=== PATIENT | female | born 1990 | race Two or more races ===

== ENCOUNTER 2017-11-20 09:50 | Emergency (ER) | payer SELFPAY ==
[~2017-11-20] VITALS: Ht 160 cm; Wt 54.4 kg
[2017-11-20 10:27] VITALS: BP 116/67
[2017-11-20 10:37] LABS: BILIRUBIN,URINE NEGATIVE (NEG); CLARITY,URINE CLEAR; COLOR,URINE YELLOW; NITRITE,URINE NEGATIVE (NEG); PH,URINE 8.5; PROTEIN,URINE NEGATIVE (NEG-TRACE); UROBILINOGEN,URINE 0.2 mg/dL (0.2 mg/dL)
[2017-11-20 10:44] LABS: BACTERIA,URINE FEW /HPF (0-FEW); SQUAMOUS EPITHELIAL CELL,UR MOD /LPF
[2017-11-20 11:19] LABS: BASO % 1 % (0-3); EOS # 0.1 x10^3/uL (0.0-0.7); EOS % 1 % (0-3); HEMATOCRIT 34.9 % (36.0-47.0); HEMOGLOBIN 12.4 g/dL (12.0-15.5); LYMPH # 0.9 x10^3/uL (1.0-4.8); LYMPH % 17 % (24-48); MEAN CORPUSCULAR HEMOGLOBIN 30 pg (25-35); MEAN CORPUSCULAR HGB CONC 35 g/dL (31-37); MEAN CORPUSCULAR VOLUME 83 fL (79-100); MONO # 0.4 x10^3/uL (0.0-1.1); MONO % 8 % (0-9); NEUT # 3.8 x10^3uL (1.8-7.7); NEUT % 73 % (31-73); PLATELET COUNT 217 x10^3/uL (140-400); WHITE BLOOD COUNT 5.2 x10^3/uL (4.0-11.0)
--- NOTE | 2017-11-20 12:37 | RAD ---
Obstetrical ultrasound, 11/20/2017: HISTORY: , vaginal bleeding Transabdominal and transvaginal scans were obtained. There is a single intrauterine gestational sac. It contains a yolk sac. A small structure compatible with a pole is visualized measuring 3.8 mm in length. This suggests a gestational age of 6 weeks and 0 days yielding a sonographic EDC of 07/16/2018. Faint heart motion is seen with a heart rate of 106 bpm. No subchorionic hemorrhage is evident. The ovaries are unremarkable. No adnexal mass is seen. No free fluid is evident in the pelvis. IMPRESSION: Single viable intrauterine fetus of 6 weeks gestational age. Electronically signed by: Be Nugent MD (11/20/2017 12:33 PM) [facility]
[2017-11-20] MEDS ORDERED: METR500T PO (13:33)
--- NOTE | 2017-11-20 13:34 | PHYS DOC ---
Past Medical History Past Medical History: No Pertinent History Past Surgical History: No Surgical History Alcohol Use: None Drug Use: None Adult General Chief Complaint Chief Complaint: VAGINAL BLEEDING HPI HPI Patient is a 27 year old Azeri-speaking female with no significant medical history who presents today complaining of spotting for 3 days. She is a 2 para 1. She states she is roughly 6 weeks . Patient denies any abdominal pain. Denies any nausea, vomiting. Denies any urgency frequency or dysuria. Review of Systems Review of Systems Constitutional: Denies fever or chills [] Eyes: Denies change in visual acuity, redness, or eye pain [] HENT: Denies nasal congestion or sore throat [] Respiratory: Denies cough or shortness of breath [] Cardiovascular: No additional information not addressed in HPI [] GI: Denies abdominal pain, nausea, vomiting, bloody stools or diarrhea [] female :spotting for 3 days : Denies dysuria or hematuria [] Musculoskeletal: Denies back pain or joint pain [] Integument: Denies rash or skin lesions [] Neurologic: Denies headache, focal weakness or sensory changes [] All other systems were reviewed and found to be within normal limits, except as documented in this note. Allergies Allergies Allergies Coded Allergies Type Severity Reaction Last Updated Verified No Known Drug Allergies 11/20/17 No Physical Exam Physical Exam Constitutional: Well developed, well nourished, no acute distress, non-toxic appearance. [] HENT: Normocephalic, atraumatic, bilateral external ears normal, oropharynx moist, no oral exudates, nose normal. [] Eyes: PERRLA, EOMI, conjunctiva normal, no discharge. [] Neck: Normal range of motion, no tenderness, supple, no stridor. [] Cardiovascular:Heart rate regular rhythm, no murmur [] Lungs & Thorax: Bilateral breath sounds clear to auscultation [] Abdomen: Bowel sounds normal, soft, no tenderness, no masses, no pulsatile masses. [] Pelvic exam External pelvic appears normal, cervix is closed, no CMT, no adnexal tenderness , small amount of white discharge in the vaginal vault, no bleeding. Skin: Warm, dry, no erythema, no rash. [] Back: No tenderness, no CVA tenderness. [] Extremities: No tenderness, no cyanosis, no clubbing, ROM intact, no edema. [] Neurologic: Alert and oriented X 3, normal motor function, normal sensory function, no focal deficits noted. [] Psychologic: Affect normal, judgement normal, mood normal. [] Current Patient Data Vital Signs Vital Signs Date Time Temp Pulse Resp B/P (MAP) Pulse Ox O2 Delivery O2 Flow Rate FiO2 11/20/17 10:27 98.3 86 20 116/67 (83) 96 Room Air 98.3 Lab Values Laboratory Tests Test 11/20/17 10:05 11/20/17 10:10 11/20/17 11:05 Urine Collection Type Void Urine Color Yellow Urine Clarity Clear Urine pH 8.5 Urine Specific [place] 1.015 Urine Protein Negative mg/dL (NEG-TRACE) Urine Glucose (UA) Negative mg/dL (NEG) Urine Ketones (Stick) Negative mg/dL (NEG) Urine Blood Small (NEG) Urine Nitrite Negative (NEG) Urine Bilirubin Negative (NEG) Urine Urobilinogen Dipstick 0.2 mg/dL (0.2 mg/dL) Urine Leukocyte Esterase Trace (NEG) Urine RBC 1-2 /HPF (0-2) Urine WBC 1-4 /HPF (0-4) Urine Squamous Epithelial Cells Mod /LPF Urine Bacteria Few /HPF (0-FEW) Urine Mucus Slight /LPF POC Urine HCG, Qualitative Hcg positive (Negative) White Blood Count 5.2 x10^3/uL (4.0-11.0) Red Blood Count 4.20 x10^6/uL (3.50-5.40) Hemoglobin 12.4 g/dL (12.0-15.5) Hematocrit 34.9 % (36.0-47.0) L Mean Corpuscular Volume 83 fL (79-100) Mean Corpuscular Hemoglobin 30 pg (25-35) Mean Corpuscular Hemoglobin Concent 35 g/dL (31-37) Red Cell Distribution Width 13.0 % (11.5-14.5) Platelet Count 217 x10^3/uL (140-400) Neutrophils (%) (Auto) 73 % (31-73) Lymphocytes (%) (Auto) 17 % (24-48) L Monocytes (%) (Auto) 8 % (0-9) Eosinophils (%) (Auto) 1 % (0-3) Basophils (%) (Auto) 1 % (0-3) Neutrophils # (Auto) 3.8 x10^3uL (1.8-7.7) Lymphocytes # (Auto) 0.9 x10^3/uL (1.0-4.8) L Monocytes # (Auto) 0.4 x10^3/uL (0.0-1.1) Eosinophils # (Auto) 0.1 x10^3/uL (0.0-0.7) Basophils # (Auto) 0.0 x10^3/uL (0.0-0.2) Maternal Serum HCG Beta Subunit 81691 mIU/mL (0-5) H Laboratory Tests 11/20/17 11:05 Microbiology 11/20/17 Wet Prep - Final, Complete 11/20/17 Urine Culture - Final, Complete 11/20/17 Urine Culture Result 1 (CHRIS) - Final, Complete EKG EKG [] Radiology/Procedures Radiology/Procedures [] Course & Med Decision Making Course & Med Decision Making Pertinent Labs and Imaging studies reviewed. (See chart for details) This is a 27-year-old female patient presenting to the ED today with vaginal spotting for 3 days. She is a 2 para 1 currently 6 weeks . + urine hcg. OB ultrasound was noted for an IUP 6 weeks . CBC with no acute findings, beta-hCG 84082, blood group O+. UA negative for infection. Wet prep noted for BV. Patient did not have any active bleeding during physical exam. Discharged with Flagyl for BV. Provided OB and instructed to follow-up in the next 7 days. Instructed to maintain pelvic rest. Staff Physician Addendum: I was working in the ER during the course of this patient's visit. I was available for consultation as needed, but I was not directly involved in the care of this patient. Dragon Disclaimer Dragon Disclaimer This electronic medical record was generated, in whole or in part, using a voice recognition dictation system. Departure Departure Impression: Primary Impression: Threatened Additional Impression: Bacterial vaginosis Disposition: 01 HOME, SELF-CARE Condition: STABLE Referrals: NO PCP (PCP) KATHARINA MCNULTY MD follow up in 1 week Patient Instructions: Bacterial Vaginosis, Threatened Miscarriage Additional Instructions: You were evaluated in the emergency room for spotting in , you are 6 weeks . Please do not have any sex or do strenuous activities until you 're seen by the MERCHANDISING STOCK ASSOCIATE. Please come back to the emergency room at any point your symptoms worsen. Scripts Metronidazole (FLAGYL) 500 Mg Tablet 1 TAB PO BID, #14 TAB Prov: CELIA DELUNA APRN 11/20/17 Problem Qualifiers CELIA DELUNA APRN Nov 20, 2017 13:34 SUZI TRIANA MD Nov 22, 2017 06:16
== END 2017-11-20 14:11 | disposition home or self-care (01) ==
LOC: ER 09:50
DX: O20.0 Threatened abortion (principal); O23.591 Infection of other part of genital tract in pregnancy, first trimester; B96.89 Other specified bacterial agents as the cause of diseases classified elsewhere; Z3A.01 Less than 8 weeks gestation of pregnancy
CPT/HCPCS: 36415; 76801; 76817; 81001; 81025; 84702; 85025; 86850; 86900; 86901; 87086; 99285; Q0111

== ENCOUNTER 2017-12-24 21:51 | Emergency (ER) | payer SELFPAY ==
[~2017-12-24] VITALS: Ht 162.6 cm; Wt 49.9 kg
[~2017-12-24 21:51] MED LIST: METR500T PO
[2017-12-24 22:29] LABS: BILIRUBIN,URINE NEGATIVE (NEG); CLARITY,URINE CLEAR; COLOR,URINE YELLOW; NITRITE,URINE NEGATIVE (NEG); PROTEIN,URINE NEGATIVE (NEG-TRACE); UROBILINOGEN,URINE 0.2 mg/dL (0.2 mg/dL)
[2017-12-24] MEDS ORDERED: IV NORMAL SALINE 1000ML BAG 1,000 ML IV ONE (22:30)
[2017-12-24 22:35] LABS: BACTERIA,URINE 0 /HPF (0-FEW); RBC,URINE 0 /HPF (0-2); SQUAMOUS EPITHELIAL CELL,UR OCC /LPF; WBC,URINE OCC /HPF (0-4)
[2017-12-24 23:25] LABS: BASO # 0.1 x10^3/uL (0.0-0.2); BASO % 1 % (0-3); EOS # 0.2 x10^3/uL (0.0-0.7); EOS % 1 % (0-3); HEMATOCRIT 34.1 % (36.0-47.0); LYMPH # 1.5 x10^3/uL (1.0-4.8); LYMPH % 12 % (24-48); MEAN CORPUSCULAR HEMOGLOBIN 30 pg (25-35); MEAN CORPUSCULAR HGB CONC 35 g/dL (31-37); MEAN CORPUSCULAR VOLUME 85 fL (79-100); MONO # 0.8 x10^3/uL (0.0-1.1); MONO % 6 % (0-9); NEUT # 10.3 x10^3uL (1.8-7.7); NEUT % 80 % (31-73); PLATELET COUNT 259 x10^3/uL (140-400); RED BLOOD COUNT 4.03 x10^6/uL (3.50-5.40); RED CELL DISTRIBUTION WIDTH 13.4 % (11.5-14.5); WHITE BLOOD COUNT 12.9 x10^3/uL (4.0-11.0)
[2017-12-24 23:36] LABS: CALCIUM 9.1 mg/dL (8.5-10.1); CREATININE 0.5 mg/dL (0.6-1.0); GFR 145.9; POTASSIUM 3.1 mmol/L (3.5-5.1)
[2017-12-24 23:43] LABS: ALBUMIN 3.4 g/dL (3.4-5.0); ALBUMIN/GLOBULIN RATIO 0.8 (1.0-1.7); TOTAL BILIRUBIN 0.3 mg/dL (0.2-1.0); TOTAL PROTEIN 7.5 g/dL (6.4-8.2)
--- NOTE | 2017-12-24 23:51 | RAD ---
OB ultrasound less than 14 weeks HISTORY: and bleeding Sonographic examination of the was performed by transabdominal technique and multiple static images were obtained There is a single live intrauterine . The heartbeat is confirmed at 175 bpm. The right ovary appears normal normal blood flow. Left ovary appears normal with normal blood flow. The LMP of 10/09/2017 corresponds to 10 week 6 day gestational age and estimated date confinement of 07/16/2018. The crown-rump length of 4.6 cm corresponds to 11 week 3 day gestational age and estimated confinement of 10/12/2018. IMPRESSION: Single live intrauterine at 11 weeks 3 days gestational age. No abnormality detected. A short-term follow-up study could be performed if clinically indicated otherwise a structural survey would be performed at 18-21 weeks gestational age. Electronically signed by: Noel Tellez III, MD (12/24/2017 11:48 PM) [facility]
--- NOTE | 2017-12-25 00:01 | PHYS DOC ---
Past Medical History Past Medical History: No Pertinent History Past Surgical History: Alcohol Use: None Drug Use: None Adult General Chief Complaint Chief Complaint: VAGINAL BLEEDING [facility] HPI Patient is a 27 year old female who presents with vaginal bleeding 1 day. The patient states that she started to develop vaginal bleeding soaked through 3 Kotex within 30 minutes. The patient is not currently actively bleeding in the emergency department. She has not seen an level vial curvature gauger for this yet. She denies abdominal pain or pelvic pain. She denies vaginal odor. Review of Systems Review of Systems Constitutional: Denies fever or chills [] Eyes: Denies change in visual acuity, redness, or eye pain [] HENT: Denies nasal congestion or sore throat [] Respiratory: Denies cough or shortness of breath [] Cardiovascular: No additional information not addressed in HPI [] GI: See history of present illness : See history of present illness Musculoskeletal: Denies back pain or joint pain [] Integument: Denies rash or skin lesions [] Neurologic: Denies headache, focal weakness or sensory changes [] Endocrine: Denies polyuria or polydipsia [] All other systems were reviewed and found to be within normal limits, except as documented in this note. Current Medications Current Medications Current Medications Medications (Trade) Dose Ordered Sig/Davi Start Time Stop Time Status Last Admin Dose Admin Potassium Chloride (Klor-Con) 40 meq 1X ONCE 12/25/17 00:30 12/25/17 00:30 DC Sodium Chloride 1,000 ml @ 1,000 mls/hr 1X ONCE 12/24/17 22:30 12/24/17 23:29 DC 12/24/17 23:15 1,000 MLS/HR Allergies Allergies Allergies Coded Allergies Type Severity Reaction Last Updated Verified No Known Drug Allergies 11/20/17 No Physical Exam Physical Exam Constitutional: Well developed, well nourished, no acute distress, non-toxic appearance. [] Cardiovascular:Heart rate regular rhythm, no murmur [] Lungs & Thorax: Bilateral breath sounds clear to auscultation [] Abdomen: Bowel sounds normal, soft, no tenderness, no masses, no pulsatile masses. [] Skin: Warm, dry, no erythema, no rash. [] Back: No tenderness, no CVA tenderness. [] Extremities: No tenderness, no cyanosis, no clubbing, ROM intact, no edema. [] Neurologic: Alert and oriented X 3, normal motor function, normal sensory function, no focal deficits noted. [] Psychologic: Affect normal, judgement normal, mood normal. [] Current Patient Data Vital Signs Vital Signs Date Time Temp Pulse Resp B/P (MAP) Pulse Ox O2 Delivery O2 Flow Rate FiO2 12/24/17 22:19 98.5 106 20 113/59 (77) 100 Room Air 98.5 Lab Values Laboratory Tests Test 12/24/17 22:20 12/24/17 23:15 Urine Collection Type Unknown Urine Color Yellow Urine Clarity Clear Urine pH 7.0 Urine Specific [place] <=1.005 Urine Protein Negative mg/dL (NEG-TRACE) Urine Glucose (UA) Negative mg/dL (NEG) Urine Ketones (Stick) Negative mg/dL (NEG) Urine Blood Negative (NEG) Urine Nitrite Negative (NEG) Urine Bilirubin Negative (NEG) Urine Urobilinogen Dipstick 0.2 mg/dL (0.2 mg/dL) Urine Leukocyte Esterase Negative (NEG) Urine RBC 0 /HPF (0-2) Urine WBC Occ /HPF (0-4) Urine Squamous Epithelial Cells Occ /LPF Urine Bacteria 0 /HPF (0-FEW) White Blood Count 12.9 x10^3/uL (4.0-11.0) H Red Blood Count 4.03 x10^6/uL (3.50-5.40) Hemoglobin 12.0 g/dL (12.0-15.5) Hematocrit 34.1 % (36.0-47.0) L Mean Corpuscular Volume 85 fL (79-100) Mean Corpuscular Hemoglobin 30 pg (25-35) Mean Corpuscular Hemoglobin Concent 35 g/dL (31-37) Red Cell Distribution Width 13.4 % (11.5-14.5) Platelet Count 259 x10^3/uL (140-400) Neutrophils (%) (Auto) 80 % (31-73) H Lymphocytes (%) (Auto) 12 % (24-48) L Monocytes (%) (Auto) 6 % (0-9) Eosinophils (%) (Auto) 1 % (0-3) Basophils (%) (Auto) 1 % (0-3) Neutrophils # (Auto) 10.3 x10^3uL (1.8-7.7) H Lymphocytes # (Auto) 1.5 x10^3/uL (1.0-4.8) Monocytes # (Auto) 0.8 x10^3/uL (0.0-1.1) Eosinophils # (Auto) 0.2 x10^3/uL (0.0-0.7) Basophils # (Auto) 0.1 x10^3/uL (0.0-0.2) Maternal Serum HCG Beta Subunit 083602 mIU/mL (0-5) H Sodium Level 138 mmol/L (136-145) Potassium Level 3.1 mmol/L (3.5-5.1) L Chloride Level 102 mmol/L (98-107) Carbon Dioxide Level 25 mmol/L (21-32) Anion Gap 11 (6-14) Blood Urea Nitrogen 6 mg/dL (7-20) L Creatinine 0.5 mg/dL (0.6-1.0) L Estimated GFR (Cockcroft-Gault) 145.9 BUN/Creatinine Ratio 12 (6-20) Glucose Level 84 mg/dL (70-99) Calcium Level 9.1 mg/dL (8.5-10.1) Total Bilirubin 0.3 mg/dL (0.2-1.0) Aspartate Amino Transferase (AST) 20 U/L (15-37) Alanine Aminotransferase (ALT) 30 U/L (14-59) Alkaline Phosphatase 78 U/L (46-116) Total Protein 7.5 g/dL (6.4-8.2) Albumin 3.4 g/dL (3.4-5.0) Albumin/Globulin Ratio 0.8 (1.0-1.7) L Laboratory Tests 12/24/17 23:15 Laboratory Tests 12/24/17 23:15 EKG EKG [] Radiology/Procedures Radiology/Procedures [] PATIENT: LOLA BROOKS ACCOUNT: [id number] : 1990 LOCATION: ER AGE: 27 SEX: F EXAM STATUS: REG ER ORD. PHYSICIAN: MARIELA STOLL APRN REASON: bleeding in PROCEDURE: OB < 14 WKS OB ultrasound less than 14 weeks HISTORY: and bleeding Sonographic examination of the was performed by transabdominal technique and multiple static images were obtained There is a single live intrauterine . The heartbeat is confirmed at 175 bpm. The right ovary appears normal normal blood flow. Left ovary appears normal with normal blood flow. The LMP of 10/09/2017 corresponds to 10 week 6 day gestational age and estimated date confinement of 07/16/2018. The crown-rump length of 4.6 cm corresponds to 11 week 3 day gestational age and estimated confinement of 10/12/2018. IMPRESSION: Single live intrauterine at 11 weeks 3 days gestational age. No abnormality detected. A short-term follow-up study could be performed if clinically indicated otherwise a structural survey would be performed at 18-21 weeks gestational age. Electronically signed by: Leann Solano III, MD (12/24/2017 11:48 PM) [facility] DICTATED and SIGNED BY: LEANN SOLANO III, MD DATE: 12/24/17 2346 Pelvic Exam: Senior Case Manager present Abdomen: Nontender External Genitalia: Normal Skin Speculum: Normal vaginal mucosa, small amount of bloody cervical discharge Bimanual: No adnexal masses or tenderness, No CMT Course & Med Decision Making Course & Med Decision Making Pertinent Labs and Imaging studies reviewed. (See chart for details) [] Dragon Disclaimer Dragon Disclaimer This electronic medical record was generated, in whole or in part, using a voice recognition dictation system. Departure Departure Impression: Primary Impression: Threatened Disposition: 01 HOME, SELF-CARE Condition: STABLE Referrals: NO PCP (PCP) EAN BROWN MD Patient Instructions: Threatened Miscarriage Additional Instructions: Call tomorrow morning for an obstetric appointment for further evaluation and follow-up. If worsening return to the emergency department. MARIELA STOLL APRN Dec 25, 2017 00:01
[2017-12-25 00:05] VITALS: BP 100/57
[2017-12-25] MEDS ORDERED: POTASSIUM CHLORIDE 20 MEQ TABLET.ER. PO ONE (00:30)
== END 2017-12-25 00:25 | disposition home or self-care (01) ==
LOC: ER 21:51
DX: O20.0 Threatened abortion (principal); Z98.890 Other specified postprocedural states; Z3A.11 11 weeks gestation of pregnancy
CPT/HCPCS: 36415; 76801; 80053; 81001; 84702; 85025; 99285; J7030